=== PATIENT | male | born 1990 | race African-American/Black ===

== ENCOUNTER 2024-04-02 16:45 | Emergency (ER) | payer OTHER, SELFPAY ==
--- NOTE | 2024-04-02 16:51 | ED.NAVMDI ---
HPI - Nausea/Vomiting/Diarrhea General Chief complaint: Nausea/Vomiting/Diarrhea Stated complaint: nausea/blood in stool Source: patient and RN notes reviewed Mode of arrival: ambulatory Limitations: no limitations History of Present Illness HPI Narrative: 33 year old male presents with concern for nausea for 3 days. He reports several month history of intermittent LUQ abdominal pain. He is not currently having pain. He reports once in the past week he had bright red blood in his stool. He has been having normal bowel movements, he has not had vomiting. He reports his family has a had a stomach bug this week. He denies fever, aches, chills, sweats. MD elicited complaint: nausea, vomiting and diarrhea Related Data Allergies Allergy/AdvReac Type Severity Reaction Status Date / Time No Known Allergies Allergy Verified 04/02/24 17:00 Review of Systems Review of Systems: CONSTITUTIONAL: Denies malaise, chills, sweats, or fever. ENT: Denies rhinorrhea, congestion, sinus pain, otalgia or sore throat. CARDIOVASCULAR: Denies chest pain, palpitations, or edema. RESPIRATORY: Denies cough or dyspnea. GASTROINTESTINAL: Denies current abdominal pain, vomiting, diarrhea. Reports an episode of blood in his stool a week ago. He reports nausea. GENITOURINARY: Denies dysuria or hematuria. MUSCULOSKELETAL: Denies myalgia. NEUROLOGIC: Denies headache. All systems reviewed & are unremarkable except as noted in HPI and below PMFSH Comments At time of signature, agree with nursing past medical, surgical, social and family history. There is no relevant family history pertinent to the presenting complaint Exam Narrative: GENERAL: Well-appearing, well-nourished, and in no acute distress. HEAD: Normocephalic, atraumatic. EYES: PERRLA, conjunctivae clear, and EOMI. ENT: Nares clear, turbinates pink, no rhinorrhea or epistaxis. Mucous membranes moist. Oropharynx without edema, erythema, or lesions. Tonsils not enlarged and without exudate. NECK: Supple. No lymphadenopathy CHEST: Speaks in full sentences. No respiratory distress. HEART: Regular rate and rhythm. ABDOMEN: Soft, flat, nondistended, nontender. No guarding, rebound tenderness, or rigidity. No pulsatile masses. Bowel sounds present in all four quadrants. SKIN: Warm, dry, no rash. NEURO: Alert and oriented x3. PSYCH: Normal mood and affect Course Course Emergency Course: I advised patient he needs further evaluation, and advised transfer to the ER. He is not currently having abdominal pain or blood in his stool, so he does not want to go to the ER at this time. Anticipatory guidance given. Patient agrees to follow-up as directed and is aware of reasons to seek care at the emergency department. Portions of this record may have been created with voice recognition software Level of Care: Express Care Visit Vital Signs Vital signs: Vital Signs Temperature 99.0 F 04/02/24 17:00 Pulse Rate 67 04/02/24 17:00 Respiratory Rate 16 04/02/24 17:00 Blood Pressure 155/76 H 04/02/24 17:00 Pulse Oximetry 99 04/02/24 17:00 Temperature 99.0 F 04/02/24 17:00 Pulse Rate 67 04/02/24 17:00 Respiratory Rate 16 04/02/24 17:00 Blood Pressure 155/76 H 04/02/24 17:00 Pulse Oximetry 99 04/02/24 17:00 Reviewed. MDM - Nausea/Vomiting/Diarrhea MDM Narrative Medical decision making narrative: I evaluated this patient in the express care. History is obtained from patient who is an independent historian and physical exam was performed.? Available medical records were reviewed. ? Patient is non-toxic appearing and is in no distress. ? Differential diagnosis and treatment plan were discussed with the patient. Patient does not agree with trasnfer to ER, he will follow-up with the GI referral given, and agrees to go to the ER if his symptoms worsen. All questions were answered to the patient's satisfaction. Critical Care Time Critical Care Time Critical
[2024-04-02 17:00] VITALS: BP 155/76; PULSE 67; RESP 16; TEMP 37.2; O2SAT 99
== END 2024-04-02 17:24 | disposition home or self-care (01) ==
PROVIDERS: Emergency Provider Nurse Practitioner
DX: R10.9 Unspecified abdominal pain (principal)
CPT/HCPCS: 99213; G0463